=== PATIENT | female | born 1985 | race African-American/Black ===

== ENCOUNTER 2017-09-08 08:33 | Emergency (ER) | payer OTHER ==
[2017-09-08 08:39] VITALS: BMI 37.9
--- NOTE | 2017-09-08 09:20 | PDOC ---
History of Present Illness - General History Source: Patient Exam Limitations: No Limitations <Jg Khan - Last Filed: 09/08/17 10:16> - History of Present Illness Initial Comments: This patient is a 32 year old female who is 30 weeks (3rd ), with PMHx of gestational diabetes, who presents with 1 week of right calf pain. She states that approximately 1 week ago she noticed varicose veins developing on her lower legs. She also developed a pressure-like pain in her right lower leg which has affected her sleep. She denies abdominal pain, vaginal bleeding. ObGyn: Dr. Stevens 09/08/17 09:22 <Nena Harrington - Last Filed: 09/08/17 10:19> - General Chief Complaint: Pain Stated Complaint: RT LEG PAIN,30WKS Time Seen by Provider: 09/08/17 09:05 Past History - Past Medical History Asthma: No Cancer: No Cardiac Disorders: No COPD: No Diabetes: Yes (gestational) HTN: No Seizures: No Thyroid Disease: No - Suicide/Smoking/Psychosocial Hx Smoking Status: No Smoking History: Never smoked Have you smoked in the past 12 months: No Number of Cigarettes Smoked Daily: 0 Hx Alcohol Use: No Drug/Substance Use Hx: No Hx Substance Use Treatment: No <Jg Khan - Last Filed: 09/08/17 10:16> <Nena Harrington - Last Filed: 09/08/17 10:19> - Past Medical History Allergies/Adverse Reactions: Allergies Allergy/AdvReac Type Severity Reaction Status Date / Time No Known Allergies Allergy Verified 09/08/17 08:39 Home Medications: Ambulatory Orders Vitamins (Sjr) - 1 tab PO DAILY 10/16/13 Acetaminophen [Tylenol .Regular Strength -] 650 mg PO Q4H PRN #20 tablet Ibuprofen [Motrin -] 600 mg PO Q4H PRN #20 tablet 10/19/13 Review of Systems - Review of Systems Comments:: GENERAL/CONSTITUTIONAL: No fever or chills. No weakness. HEAD, EYES, EARS, NOSE AND THROAT: No change in vision. No ear pain or discharge. No sore throat. CARDIOVASCULAR: No chest pain or shortness of breath. RESPIRATORY: No cough, wheezing, or hemoptysis. GASTROINTESTINAL: No nausea, vomiting, diarrhea or constipation. GENITOURINARY: No dysuria, frequency, or change in urination. MUSCULOSKELETAL: +right calf pain. No joint pain. No neck or back pain. SKIN: No rash NEUROLOGIC: No headache, vertigo, loss of consciousness, or change in strength/ sensation. ENDOCRINE: No increased thirst. No abnormal weight change. HEMATOLOGIC/LYMPHATIC: +b/l varicose veins in LE. No anemia, easy bleeding, or history of blood clots. ALLERGIC/IMMUNOLOGIC: No hives or skin allergy. 09/08/17 09:23 <Nena Harrington - Last Filed: 09/08/17 10:19> *Physical Exam - Vital Signs Last Vital Signs Temp Pulse Resp BP Pulse Ox 97 F L 82 18 142/59 99 09/08/17 08:35 09/08/17 08:35 09/08/17 08:35 09/08/17 08:35 09/08/17 08:35 <Jg Khan - Last Filed: 09/08/17 10:16> - Vital Signs Last Vital Signs Temp Pulse Resp BP Pulse Ox 97 F L 82 18 142/59 99 09/08/17 08:35 09/08/17 08:35 09/08/17 08:35 09/08/17 08:35 09/08/17 08:35 - Physical Exam Comments: GENERAL: Awake, alert, and fully oriented, in no acute distress HEAD: No signs of trauma EYES: PERRLA, EOMI, sclera anicteric, conjunctiva clear ENT: Auricles normal inspection, hearing grossly normal, nares patent. Moist mucosa LUNGS: Breath sounds equal, clear to auscultation bilaterally. No wheezes, and no crackles HEART: Regular rate and rhythm, normal S1 and S2, no murmurs, rubs or gallops ABDOMEN: Soft, gravid, nontender. No guarding, no rebound. No masses EXTREMITIES: + 2+ DP pulses. B/l varicose veins. No right leg tenderness. Normal range of motion, no edema. No clubbing or cyanosis. No cords, erythema, or tenderness NEUROLOGICAL: Cranial nerves II through XII grossly intact. Normal speech, normal gait SKIN: Warm, Dry, normal turgor, no rashes or lesions noted. 09/08/17 09:24 <Nena Harrington - Last Filed: 09/08/17 10:19> ED Treatment Course - RADIOLOGY Radiology Studies Ordered: Category Date Time Status DUPLEX VASCUL US-1 LEG [US] Stat Ultrasound 09/08/17 09:11 Ordered <Jg Khan - Last Filed: 09/08/17 10:16> - RADIOLOGY Radiograph Interpretation: 09/08/17 10:19 US/Duplex vascular Impression: No evidence of acute DVT. Reported by: Juan C Mejia MD 09/08/17 0954 <Nena Harrington - Last Filed: 09/08/17 10:19> Medical Decision Making - Medical Decision Making 09/08/17 09:13 A portion of this note was documented by scribe services under my direction. I have reviewed the details of the note, within reason, and agree with the documentation with the following case summary and management plan written by me. Patient treated in the ED. Nursing notes are reviewed and incorporated into the medical decision-making. Vital signs reviewed. Peripheral IV access obtained by the nurse, laboratory studies are drawn and sent, reviewed and interpreted by myself. Vital Signs Temp Pulse Resp BP Pulse Ox 97 F L 82 18 142/59 99 09/08/17 08:35 09/08/17 08:35 09/08/17 08:35 09/08/17 08:35 09/08/17 08:35 32-year-old female patient with no past medical history, approximately 30 weeks , 002 presents with right leg calf pain and swelling for one week. Patient started noticed some increasing varicose veins and some intermittent right calf pain. Denies prior history of DVTs or pulmonary embolus. Denies chest pain or shortness of breath. Patient does report that she' s been more ambulatory than usual. Denies abdominal pain or vaginal bleeding. We'll obtain a duplex the right lower extremity to rule out DVT. If negative, I suspect the patient may be having increasing varicose veins. Ultimately, the patient should go to labor and delivery for further evaluation. 09/08/17 10:17 Duplex reviewed. No DVTs. Pt is cleared for discharge up to L&D for heart monitoring. I had discussed the case for June in L&D who is aware patient will be sent to the 3rd floor. Pt informed of the results and agrees with plan. <Jg Khan - Last Filed: 09/08/17 10:16> *DC/Admit/Observation/Transfer - Discharge Dispostion Decision to Admit order: No <Jg Khan - Last Filed: 09/08/17 10:16> - Attestations Scribe Attestion: 09/08/17 09:31 Documentation prepared by Nena Harrington, acting as medical pathology teacher for Jg Khan MD. <Nena Harrington - Last Filed: 09/08/17 10:19> Diagnosis at time of Disposition: Right calf pain - Discharge Dispostion Disposition: HOME - Referrals Referrals: Román Penaloza MD [Primary Care Provider] - - Patient Instructions Printed Discharge Instructions: DI for Leg Pain Additional Instructions: Your ultrasound is negative for DVT. Please go directly to 3rd floor to labor and delivery in [facility]. - Post Discharge Activity
[2017-09-08 12:09] VITALS: BP 110/59; PULSE 66; TEMP 98.3
== END 2017-09-08 12:53 | disposition home or self-care (01) ==
LOC: JER 08:33
DX: O26.893 Other specified pregnancy related conditions, third trimester (principal); M79.661 Pain in right lower leg; Z3A.30 30 weeks gestation of pregnancy; Z86.32 Personal history of gestational diabetes
CPT/HCPCS: 93971-TC; 99281-25

== ENCOUNTER 2017-11-19 12:45 | Inpatient (IN) | payer OTHER ==
[2017-11-19] MEDS ORDERED: ELECTROLYTE-148 SOLN 500 ML IV ONE (13:00)
[2017-11-19] MEDS ORDERED: ELECTROLYTE-148 SOLN 1,000 ML IV SCH (13:30)
[2017-11-19 13:43] VITALS: BMI 40.2
[2017-11-19] MEDS ORDERED: OXYTOCIN 20 UNITS in 0.9% NS 20 UNIT/1,000 ML INFUS.BAG IV ONE (13:56)
[2017-11-19] MEDS ORDERED: CITRIC ACID/SODIUM CITRATE 30 ML UNIT-DOSE CUP PO ONE (14:15)
[2017-11-19] MEDS ORDERED: morphine SULFATE/Preservative Free 0.5 MG/ML (1cc Syringe) ONE (16:01)
[2017-11-19] MEDS ORDERED: ceFAZolin SODIUM 1 GM VIAL ONE (16:12)
[2017-11-19] MEDS ORDERED: ePHEDrine SULFATE 50 MG/1 ML AMPULE ONE (16:16)
[2017-11-19] MEDS ORDERED: PHENYLEPHRINE HCL 10 MG/1 ML SINGLE DOSE VIAL ONE (16:16)
[2017-11-19] MEDS ORDERED: OXYTOCIN 10 UNITS/ML VIAL ONE ×2 (16:27→16:40)
--- NOTE | 2017-11-19 16:40 | PN ---
Progress Note (short form) - Note Progress Note: Attended Rpt C/S for this 32yrs old Maternal PNL- reported nl, GBS- pos.- no ROM/ Not in labor Mom newly diagnosed GDM- no meds/ or diet controlled Infant delivered- clear fluid cried soon after suctioned/ dried cord 3V 9/9 's PE nl for age Not in distress RNBC Watch for Resp distress F/U accuchk Encourage Bf/ bonding Term female
--- NOTE | 2017-11-19 17:27 | HP ---
Past Medical History - Primary Care Physician PCP:: Rodney Crook - Admission Chief Complaint: 39 weeks, previous c/s , request of c/s and BTL History of Present Illness: 32 yo f g 3 p2002 edc 11/24/17 with 2 previous c/s , request of repeat c/s and btl. aware btl is parmenant and has small failure risk and risk of ectopic, cx clp vx -3, mi, fhr cat 1,\hx of gestational DM, diet controlled History Source: Patient Limitations to Obtaining History: No Limitations - Past Medical History ...: 4 ...Para: 2 ...Term: 2 ...Spon : 1 ...LMP: 02/17/17 ... Weeks Gestation by Dates: 39.1 ...EDC by Dates: 11/25/17 ...EDC by Sono: 11/24/17 - Past Surgical History Past Surgical History: Yes: None (previous c/s) Hx Myomectomy: No Hx Transabdominal Cerclage: No - Smoking History Smoking history: Never smoked Have you smoked in the past 12 months: No Aproximately how many cigarettes per day: 0 - Alcohol/Substance Use Hx Alcohol Use: No - Social History Usual Living Arrangement: Yes: With Spouse History of Recent Travel: No Home Medications - Allergies Allergies/Adverse Reactions: Allergies Allergy/AdvReac Type Severity Reaction Status Date / Time No Known Allergies Allergy Verified 11/19/17 13:31 - Home Medications Home Medications: Ambulatory Orders Vitamins (Sjr) - 1 tab PO DAILY 10/16/13 Ferrous Sulfate [Feosol] 325 mg PO DAILY 09/08/17 Review of Systems - Review of Systems Constitutional: reports: No Symptoms Eyes: reports: No Symptoms HENT: reports: No Symptoms Neck: reports: No Symptoms Cardiovascular: reports: No Symptoms Respiratory: reports: No Symptoms Gastrointestinal: reports: No Symptoms Genitourinary: reports: No Symptoms Breasts: reports: No Symptoms Reported Musculoskeletal: reports: No Symptoms Integumentary: reports: No Symptoms Neurological: reports: No Symptoms Endocrine: reports: No Symptoms Hematology/Lymphatic: reports: No Symptoms Psychiatric: reports: No Symptoms Physical Exam - Maternity Vital Signs: Vital Signs Temperature 98.0 F 11/19/17 13:34 Pulse Rate 68 11/19/17 13:34 Respiratory Rate 20 08/27/18 13:34 Blood Pressure 113/66 11/19/17 13:34 O2 Sat by Pulse Oximetry (%) Constitutional: Yes: Well Nourished, No Distress, Calm Eyes: Yes: WNL, Conjunctiva Clear, EOM Intact HENT: Yes: WNL, Atraumatic, Normocephalic Neck: Yes: WNL, Supple, Trachea Midline Cardiovascular: Yes: WNL, Regular Rate and Rhythm Breast(s): Yes: WNL - Abdominal Exam/OB Fundal Height: 40 Number of Fetuses: Single Presentation: Vertex Contractions: Yes Regularity: Irregular Intensity: Unaware Monitor Mode: External Heart Rate Location: LLQ - Vaginal Exam/OB Dilatation (cm): 0 Effacement (%): 0 Amniotic Membrane Status: Intact Presentation: Vertex/Position Station: -3 - Physical Exam Musculoskeletal: Yes: WNL Edema: Yes Edema: LLE: Trace, RLE: Trace Deep Tendon Reflex Grade: Normal +2 Psychiatric: Yes: WNL Problem List - Problems (1) with 39 completed weeks gestation Code(s): Z3A.39 - 39 WEEKS GESTATION OF (2) Previous section Code(s): Z98.891 - HISTORY OF UTERINE SCAR FROM PREVIOUS SURGERY (3) Gestational diabetes mellitus (GDM) affecting eighth Code(s): O24.419 - GESTATIONAL DIABETES MELLITUS IN , UNSP CONTROL; O09.40 - SUPERVISION OF W GRAND MULTIPARITY, UNSP TRIMESTER (4) Gestational diabetes mellitus Code(s): O24.419 - GESTATIONAL DIABETES MELLITUS IN , UNSP CONTROL Qualifiers: Gestational diabetes mellitus control: diet-controlled Trimester: third trimester Qualified Code(s): O24.410 - Gestational diabetes mellitus in , diet controlled Assessment/Plan admit for c/s and BTL. rba discussed
[2017-11-19] MEDS ORDERED: WITCH HAZEL 50% (TUCKS) 40 PAD/JAR PAD TP PRN (17:33)
[2017-11-19] MEDS ORDERED: BENZOCAINE 20% 57 GM BOTTLE TP PRN (17:33)
[2017-11-19] MEDS ORDERED: BENZOCAINE 28 GM HEMORRHOIDAL OINTMENT PR PRN (17:33)
[2017-11-19] MEDS ORDERED: oxyCODONE HCL 5 MG TABLET PO PRN (17:33)
[2017-11-19] MEDS ORDERED: METHYLERGONOVINE MALEATE 0.2 MG/1 ML AMP IM PRN (17:33)
[2017-11-19] MEDS ORDERED: OXYTOCIN 20 UNITS in 0.9% NS 20 UNIT/1,000 ML INFUS.BAG IV SCH (17:45)
[2017-11-19] MEDS ORDERED: CEFAZOLIN 1 GM in DEXTROSE 5%-WATER - 50 ML IVPB SCH (18:00)
[2017-11-19] MEDS: OXYTOCIN 20 UNITS in 0.9% NS 20 UNIT/1,000 ML INFUS.BAG IV SCH (18:29)
[2017-11-19] MEDS ORDERED: IBUPROFEN 800 MG/8 ML IJ IVPB ONE (19:12)
[2017-11-19] MEDS: IBUPROFEN 800 MG/8 ML IJ IVPB PRN (19:18)
[2017-11-19] MEDS ORDERED: TUBERCULIN PPD 5 TU/0.1ML SYRINGE (IN PATIENT USE ONLY) ID ONE ×2 (19:45)
[2017-11-19] MEDS: diphenhydrAMINE HCL 25 MG CAPSULE (FP) PO PRN (22:31)
[2017-11-20] MEDS ORDERED: ceFAZolin SODIUM 1 GM VIAL ONE ×3 (00:53→16:18)
[2017-11-20] MEDS ORDERED: DEXTROSE 5%-WATER - 50 ML IVPB ONE ×3 (00:53→16:18)
[2017-11-20] MEDS: CEFAZOLIN 1 GM in DEXTROSE 5%-WATER - 50 ML IVPB SCH ×3 (01:15→16:22)
[2017-11-20] MEDS: diphenhydrAMINE HCL 25 MG CAPSULE (FP) PO PRN (08:09)
--- NOTE | 2017-11-20 08:22 | PN ---
Progress Note (short form) - Note Progress Note: Post op day#1.S/P C Section under spinal anesthesia with duramorph uneventful.Patient stable and has little pain for which she is on medication.No any anesthesia related problem.Patient DC from the anesthesia care.
[2017-11-20 09:05] LABS: BASO % 0.3 % (0-2.0); EOS % 0.9 % (0-4.5); HEMATOCRIT 36.2 % (32.4-45.2); HEMOGLOBIN 12.1 GM/dL (10.7-15.3); LYMPH % 15.3 % (8-40); MCH 28.4 pg (25.7-33.7); MCHC 33.3 g/dl (32.0-36.0); MEAN PLT VOLUME 11.5 fl (7.5-11.1); MONO % 9.6 % (3.8-10.2); NEUT % 73.9 % (42.8-82.8); PLATELET COUNT 104 K/MM3 (134-434); RBC 4.26 M/mm3 (3.60-5.2); RDW 16.2 % (11.6-15.6); WHITE BLOOD COUNT 6.6 K/mm3 (4.0-10.0)
[2017-11-20] MEDS: ENOXAPARIN NA (PORCINE) 40 MG/0.4 ML DISP.SYRIN SQ SCH (09:05)
[2017-11-20] MEDS: IBUPROFEN 800 MG/8 ML IJ IVPB PRN (09:05)
--- NOTE | 2017-11-20 11:32 | OP ---
DATE OF OPERATION: 11/19/2017 PREOPERATIVE DIAGNOSIS: , 39 weeks, previous section, request of repeat section and tubal ligation. POSTOPERATIVE DIAGNOSIS: , 39 weeks, previous section, request of repeat section and tubal ligation. PROCEDURE: Repeat low segment transverse section and bilateral tubal ligation. SURGEON: Rodney Crook MD LOCKSTITCH BINDER: Reji Barr MD ANESTHESIA: Spinal. ESTIMATED BLOOD LOSS: 500 mL. OPERATION: The patient was taken to the operating room, had adequate spinal anesthesia. Abdomen and perineum were prepped and draped. Pfannenstiel abdominal skin incision was made. Abdominal wall was cut layer by layer until peritoneum was exposed and incised. Upon entering the abdominal cavity, lower uterine segment was identified, and uterovesical fold of peritoneum was established, and bladder was pushed down. Then, with the lower blade of the Browning retractor in the pelvis, a low transverse uterine incision was made. Incision extended laterally. Amniotic sac was entered. Clear fluid, head delivered. Nasopharynx was suctioned, and live baby was delivered without any difficulty. Placenta was delivered manually. Uterine cavity was cleaned of all remaining tissue. Uterine incision was closed using 2 layers, 1st layer with 0 Biosyn continuous suture, the 2nd layer with 0 Biosyn imbricating the 1st layer. Bladder flap was closed with 0 Biosyn continuous suture. Both tubes and ovaries were checked, were normal. No active bleeding was seen. Then, right tube was grasped with Christy clamp. Right tube was doubly tied with 2-0 plain, portion of tube was removed, and endosalpinx was cauterized. The same procedure repeated for opposite tube. No active bleeding was seen. Then, all the lap pad, sponge count, and instrument count were correct. Peritoneum was closed with 0 Biosyn continuous suture, muscles were brought together with interrupted sutures of 0 Biosyn, fascia was closed with 0 Biosyn continuous suture, subcutaneous fat with interrupted suture of 0 Biosyn, and the skin was closed with 3-0 Vicryl subcuticular continuous suture. Patient tolerated the procedure well, left the OR in good condition. El [id number]
[2017-11-20] MEDS: SIMETHICONE 80 MG TAB.CHEW (FP) PO PRN ×2 (12:55→22:08)
[2017-11-20] MEDS: IBUPROFEN 600 MG TABLET (FP) PO PRN (12:55)
[2017-11-20] MEDS ORDERED: ACETAMINOPHEN 325 MG TABLET (FP) PO PRN (13:37)
--- NOTE | 2017-11-20 13:38 | PN ---
Progress Note (short form) - Note Progress Note: pod 1 s/p repeat c/s , BTL ambulating , no excess vaginal bleeding CBC, BMP 11/20/17 08:30 Last Vital Signs Temp Pulse Resp BP Pulse Ox 98.5 F 60 18 117/62 100 11/20/17 08:34 11/20/17 08:34 11/20/17 11:00 11/20/17 08:34 11/19/17 18:15 abdomen soft, no distension, no cva incision dry, clean no calf tenderness no excess vaginal bleeding plan ambulate, advance diet pain management Problem List - Problems (1) with 39 completed weeks gestation Code(s): Z3A.39 - 39 WEEKS GESTATION OF (2) Previous section Code(s): Z98.891 - HISTORY OF UTERINE SCAR FROM PREVIOUS SURGERY (3) Gestational diabetes mellitus (GDM) affecting eighth Code(s): O24.419 - GESTATIONAL DIABETES MELLITUS IN , UNSP CONTROL; O09.40 - SUPERVISION OF W GRAND MULTIPARITY, UNSP TRIMESTER (4) Gestational diabetes mellitus Code(s): O24.419 - GESTATIONAL DIABETES MELLITUS IN , UNSP CONTROL Qualifiers: Gestational diabetes mellitus control: diet-controlled Trimester: third trimester Qualified Code(s): O24.410 - Gestational diabetes mellitus in , diet controlled
[2017-11-20] MEDS: oxyCODONE HCL 5 MG TABLET PO PRN (14:39)
[2017-11-20] MEDS ORDERED: BISACODYL 10 MG SUPP.RECT PR PRN (17:33)
[2017-11-20] MEDS: ACETAMINOPHEN 325 MG TABLET (FP) PO PRN (22:08)
[2017-11-21] MEDS: CEFAZOLIN 1 GM in DEXTROSE 5%-WATER - 50 ML IVPB SCH (01:01)
[2017-11-21] MEDS: SIMETHICONE 80 MG TAB.CHEW (FP) PO PRN ×2 (04:35→23:31)
[2017-11-21] MEDS: IBUPROFEN 600 MG TABLET (FP) PO PRN ×5 (04:36→23:31)
[2017-11-21] MEDS: oxyCODONE HCL 5 MG TABLET PO PRN ×5 (04:36→23:31)
[2017-11-21] MEDS: ENOXAPARIN NA (PORCINE) 40 MG/0.4 ML DISP.SYRIN SQ SCH (10:00)
--- NOTE | 2017-11-21 10:02 | DS ---
Physical Exam-COMPLAINT INVESTIGATOR Vital Signs: Vital Signs Temperature 98.1 F 11/21/17 09:21 Pulse Rate 61 11/21/17 09:21 Respiratory Rate 18 11/21/17 09:21 Blood Pressure 119/67 11/21/17 09:21 O2 Sat by Pulse Oximetry (%) 100 11/19/17 18:15 Constitutional: Yes: Well Nourished, No Distress, Calm Eyes: Yes: WNL, Conjunctiva Clear, EOM Intact HENT: Yes: WNL, Atraumatic, Normocephalic Neck: Yes: WNL, Supple, Trachea Midline Cardiovascular: Yes: WNL, Regular Rate and Rhythm Respiratory: Yes: WNL, Regular, CTA Bilaterally Gastrointestinal: Yes: WNL ...Rectal Exam: Yes: WNL Renal/: Yes: WNL External Genitalia: Yes: Normal ....Post : Yes: Uterus firm, Uterus non-tender, Slight lochia rubra Breast(s): Yes: WNL Musculoskeletal: Yes: WNL Extremities: Yes: WNL Edema: No Integumentary: Yes: WNL Wound/Incision: Yes: Clean/Dry, Well Approximated, Sutures Intact Neurological: Yes: WNL, Alert, Oriented ...Motor Strength: WNL Psychiatric: Yes: WNL, Alert, Oriented Labs: CBC, BMP 11/20/17 08:30 Delivery - Delivery Section: Repeat, Low Flap Transverse (no complication) Type of Anesthesia: Spinal Episiotomy/Laceration: None EBL (cc): 500 Delivery, Single - Stages of Labor Date of Delivery: 11/19/17 Time of Delivery: 16:19 Time Placenta Delivered: 16:20 Placenta: Yes: Expressed - Condition of Infant Office Coordinator Receptionist/Assistant Manager Trainee Present: Yes Name: Nicho Zepeda Gender: Female Weight: 7 lb 5 oz Position: Right, OT Total Hours ROM (Hrs/Mins): 0/01 - 1 Minute Total Score: 9 5 Minutes Total Score: 9 - [facility] Feeding Plan Initial Plan: Elected not to breastfeed exclusively throughout hospitalization Discharge Summary Reason For Visit: Current Active Problems Gestational diabetes mellitus (Acute) Gestational diabetes mellitus (GDM) affecting eighth (Acute) with 39 completed weeks gestation (Acute) Previous section (Acute) Procedures: Principal: repeat c/s. BTL Hospital Course: no complication - Instructions Diet, Activity, Other Instructions: regular diet, follow up office 1 week - Home Medications Comprehensive Discharge Medication List: Ambulatory Orders Vitamins (Sjr) - 1 tab PO DAILY 10/16/13 Ferrous Sulfate [Feosol] 325 mg PO DAILY 09/08/17
[2017-11-21] MEDS: OXYTOCIN 20 UNITS in 0.9% NS 20 UNIT/1,000 ML INFUS.BAG IV SCH ×2 (21:58→21:59)
[2017-11-21] MEDS: DEXTROSE 5%-LACTATED RINGERS 1,000 ML IV SCH (21:58)
[2017-11-21] MEDS ORDERED: SENNOSIDES/DOCUSATE COMBO (SENNA PLUS) TABLET (UD) PO PRN (22:00)
[2017-11-21] MEDS: ACETAMINOPHEN 325 MG TABLET (FP) PO PRN (23:31)
[2017-11-22] MEDS: DEXTROSE 5%-LACTATED RINGERS 1,000 ML IV SCH (03:05)
[2017-11-22] MEDS: SIMETHICONE 80 MG TAB.CHEW (FP) PO PRN (07:27)
[2017-11-22] MEDS: IBUPROFEN 600 MG TABLET (FP) PO PRN ×2 (07:28→12:58)
[2017-11-22] MEDS: oxyCODONE HCL 5 MG TABLET PO PRN ×2 (07:28→12:57)
--- NOTE | 2017-11-22 07:36 | PN ---
Post Progress Note - Subjective Subjective: Patient without acute complaints. Reports tolerating oral intake without nausea or vomiting. Ambulating without dizziness. Denies fevers or chills. Pain well controlled with oral pain medication. without difficulty. Passing flatus. Post Day: 3 Type of Delivery: Repeat C/S Vital Signs: Vital Signs Temperature 97.5 F L 11/21/17 21:34 Pulse Rate 60 11/21/17 21:34 Respiratory Rate 18 11/21/17 21:34 Blood Pressure 112/70 11/21/17 21:34 O2 Sat by Pulse Oximetry (%) 100 11/19/17 18:15 Breast Exam: Yes: Soft Uterus: Yes: Fundus Firm, Fundus below umbilicus Incision: Yes: Sutures intact. No: Redness, Oozing Abdomen/GI: Yes: Abdomen soft, Tender (mild incisional), Passing flatus, Tolerating PO. No: Abdominal Distention Lochia: Yes: Serosa Lochia, amount: Small Extremities: Yes: Calves non-tender. No: Edema Activity: Ambulating - Labs Labs: CBC WBC 6.6 K/mm3 (4.0-10.0) 11/20/17 08:30 RBC 4.26 M/mm3 (3.60-5.2) 11/20/17 08:30 Hgb 12.1 GM/dL (10.7-15.3) 11/20/17 08:30 Hct 36.2 % (32.4-45.2) 11/20/17 08:30 MCV 85.0 fl (80-96) 11/20/17 08:30 MCH 28.4 pg (25.7-33.7) 11/20/17 08:30 MCHC 33.3 g/dl (32.0-36.0) 11/20/17 08:30 RDW 16.2 % (11.6-15.6) H 11/20/17 08:30 Plt Count 104 K/MM3 (134-434) L 11/20/17 08:30 MPV 11.5 fl (7.5-11.1) H 11/20/17 08:30 Absolute Neuts (auto) 4.9 K/mm3 (1.5-8.0) 11/20/17 08:30 Neutrophils % 73.9 % (42.8-82.8) D 11/20/17 08:30 Lymphocytes % 15.3 % (8-40) D 11/20/17 08:30 Monocytes % 9.6 % (3.8-10.2) 11/20/17 08:30 Eosinophils % 0.9 % (0-4.5) 11/20/17 08:30 Basophils % 0.3 % (0-2.0) 11/20/17 08:30 Nucleated RBC % 0 % (0-0) 11/20/17 08:30 Assessment/Plan 32 yo POD # 3 s/p R CD, afebrile, vital signs stable, stable for discharge home today 1. Patient stable for discharge home today. 2. Patient encouraged to contact MD for: - Severe pain not controlled by oral pain medication - Fevers or chills - Nausea or vomiting, intolerance of oral intake - Incision redness, tenderness or discharge 3. Patient to follow up in office in 1-2 weeks for incision check, 4-6 weeks for visit
[2017-11-22 07:52] VITALS: BP 130/78; PULSE 70; TEMP 98
[2017-11-22 08:29] LABS: BASO % 0.2 % (0-2.0); EOS % 1.8 % (0-4.5); HEMATOCRIT 35.5 % (32.4-45.2); HEMOGLOBIN 11.6 GM/dL (10.7-15.3); LYMPH % 35.2 % (8-40); MCH 27.8 pg (25.7-33.7); MCHC 32.7 g/dl (32.0-36.0); MEAN CELL VOLUME 85.1 fl (80-96); MEAN PLT VOLUME 10.6 fl (7.5-11.1); MONO % 8.2 % (3.8-10.2); NEUT % 54.6 % (42.8-82.8); PLATELET COUNT 124 K/MM3 (134-434); RBC 4.17 M/mm3 (3.60-5.2); RDW 16.3 % (11.6-15.6); WHITE BLOOD COUNT 5.9 K/mm3 (4.0-10.0)
[2017-11-22] MEDS: ENOXAPARIN NA (PORCINE) 40 MG/0.4 ML DISP.SYRIN SQ SCH ×2 (08:57→09:02)
--- NOTE | 2017-11-27 16:21 | PATH ---
Surgical Pathology Report Patient Name: MONAE PALACIOS [facility]. Rec. #: [id number] /Age/Gender: 1985 (Age: 32) / F Account: [id number] Location: [facility] OBS/FLEXOGRAPHIC PRESS HELPER Taken: 11/19/2017 Received: 11/20/2017 Reported: 11/27/2017 Physicians: Rodney Crook M.D. Specimen(s) Received A: PLACENTA B: LEFT PORTION FALLOPIAN TUBE C: RIGHT PORTION FALLOPIAN TUBE Clinical History , x2 Final Diagnosis A. PLACENTA, SECTION: 439 G THIRD TRIMESTER PLACENTA WITH TRIVASCULAR UMBILICAL CORD AND UNREMARKABLE PLACENTAL MEMBRANES. B. FALLOPIAN TUBE, LEFT, PARTIAL EXCISION: FULL LUMINAL PORTION OF UNREMARKABLE FALLOPIAN TUBE. C. FALLOPIAN TUBE, RIGHT, PARTIAL EXCISION: FULL LUMINAL PORTION OF UNREMARKABLE FALLOPIAN TUBE. Electronically Signed Brittney Smith M.D. Gross Description A. The specimen is received fresh labeled placenta and is a 439 gram, 15.5 x 15.0 x 2.8 cm. placenta with attached membranes and umbilical cord. The attached membranes are garcia, thick, cloudy and insert marginally. The umbilical cord measures 25 cm. in length and averages 1.2 cm. in diameter. The cord inserts eccentrically, 3.5 cm. to the nearest margin. No true knots or strictures are identified. Cut surface of the umbilical cord reveals 3 vessels. The surface is johns-blue with minimal fibrin deposition and appropriate caliber vessels. The maternal surface is red-brown with focal defects. Sectioning reveals red-brown, spongy parenchyma. No lesions are identified. Tile And Marble Setter sections are submitted in three cassettes as follows: 1- membrane rolls and umbilical cord; 2-3- full thickness sections of placenta. B. Received in formalin labeled "portion of left tube," is a 0.7 cm in length portion of fallopian tube. No fimbria are present. The outer surface is garcia-butt and smooth. Sectioning reveals an unremarkable lumen. Tile And Marble Setter sections are submitted in one cassette. C. Received in formalin labeled "portion of right tube," is a 1.2 cm in length portion of fallopian tube. No fimbria are present. The outer surface is garcia-butt and smooth. Sectioning reveals an unremarkable lumen. Tile And Marble Setter sections are submitted in one cassette. 11/23/2017 saudi11/23/2017
== END 2017-11-22 13:45 | disposition home or self-care (01) | DRG 540 ==
LOC: JLDR 12:45 → J3W 19:40
PROVIDERS: ADMIT Obstetrics & Gynecology; ATTEND Obstetrics & Gynecology
PROC: 10D00Z1 Extraction of Products of Conception, Low, Open Approach (ICD-10-PCS; principal; 2017-11-20)
PROC: 0U570ZZ Destruction of Bilateral Fallopian Tubes, Open Approach (ICD-10-PCS; 2017-11-20)
DX: O34.211 Maternal care for low transverse scar from previous cesarean delivery (principal); O24.410 Gestational diabetes mellitus in pregnancy, diet controlled; Z3A.39 39 weeks gestation of pregnancy; Z37.0 Single live birth; Z30.2 Encounter for sterilization
CPT/HCPCS: 36415; 85025; 88302-TC; 88307-TC

== ENCOUNTER 2018-03-18 19:27 | Emergency (ER) | payer OTHER ==
[2018-03-18 19:44] VITALS: BP 122/68; PULSE 69; TEMP 98.4; BMI 33.8
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
[2018-03-18] MEDS ORDERED: METHOCARBAMOL 500 MG TABLET PO ONE (20:46)
[2018-03-18] MEDS ORDERED: IBUPROFEN 600 MG TABLET (FP) PO ONE ×2 (20:46→21:12)
[2018-03-18] MEDS ORDERED: LIDOCAINE 5% TOPICAL PATCH TP ONE (20:47)
[2018-03-18] MEDS ORDERED: METHOCARBAMOL 500 MG TABLET ONE (21:11)
[2018-03-18] MEDS ORDERED: LIDOCAINE 5% TOPICAL PATCH ONE (21:12)
[2018-03-18] MEDS ORDERED: LIDOCAINE PATCH REMOVAL MC SCH (22:00)
== END 2018-03-19 00:08 | disposition home or self-care (01) ==
LOC: JER 19:27
DX: S09.8XXA Other specified injuries of head, initial encounter (principal); M25.562 Pain in left knee; M25.552 Pain in left hip; Y04.2XXA Assault by strike against or bumped into by another person, initial encounter; Y93.89 Activity, other specified; Y92.122 Bedroom in nursing home as the place of occurrence of the external cause; Y99.8 Other external cause status
CPT/HCPCS: 70450-TC; 72070-TC-FY; 72131-TC; 73523-TC-FY; 73562-TC-LT-FY; 99282-25

== ENCOUNTER 2019-10-19 10:59 | Emergency (ER) | payer OTHER ==
[2019-10-19 11:17] VITALS: BP 108/55; PULSE 72; TEMP 98.4; BMI 38.4
[2019-10-19] MEDS ORDERED: IBUPROFEN 600 MG TABLET (FP) PO ONE ×2 (11:37→11:45)
--- NOTE | 2019-10-19 12:22 | PDOC ---
History of Present Illness - General Chief Complaint: Pain Stated Complaint: KNEE PAIN Time Seen by Provider: 10/19/19 11:10 History Source: Patient Exam Limitations: No Limitations Past History - Travel History Traveled outside of the country in the last 30 days: No Close contact w/someone who was outside of country & ill: No - Medical History Allergies/Adverse Reactions: Allergies Allergy/AdvReac Type Severity Reaction Status Date / Time No Known Allergies Allergy Verified 10/19/19 11:05 Home Medications: Ambulatory Orders Vitamins (Sjr) - 1 tab PO DAILY 10/16/13 Ferrous Sulfate [Feosol] 325 mg PO DAILY 09/08/17 Ibuprofen [Motrin -] 600 mg PO QID #28 tablet 11/22/17 Oxycodone HCl/Acetaminophen [Percocet 5-325 mg Tablet] 1 tab PO Q6H #10 tablet MDD 4 11/22/17 Methocarbamol [Robaxin -] 500 mg PO BID PRN #14 tablet 03/18/18 Crutch 1 each MC ASDIR #1 each 10/19/19 Ibuprofen 600 mg PO Q6H #30 tablet 10/19/19 Asthma: No Cancer: No Cardiac Disorders: No COPD: No Diabetes: No HTN: No Seizures: No Thyroid Disease: No - Psycho-Social/Smoking History Smoking Status: No Smoking History: Never smoked Have you smoked in the past 12 months: No Number of Cigarettes Smoked Daily: 0 Review of Systems - Review of Systems Able to Perform ROS?: Yes Comments:: 10/19/19 15:35 CONSTITUTIONAL: Absent: fever, chills, diaphoresis, generalized weakness, malaise, loss of appetite HEENT: Absent: rhinorrhea, nasal congestion, throat pain, throat swelling, difficulty swallowing, mouth swelling, ear pain, eye pain, visual Changes CARDIOVASCULAR: Absent: chest pain, loss of consciousness, palpitations, irregular heart rate, peripheral edema RESPIRATORY: Absent: cough, shortness of breath, dyspnea with exertion, orthopnea, wheezing, stridor, hemoptysis GASTROINTESTINAL: Absent: abdominal pain, abdominal distension, nausea, vomiting, diarrhea, constipation, melena, hematochezia GENITOURINARY: Absent: dysuria, frequency, urgency, hesitancy, hematuria, flank pain, genital pain MUSCULOSKELETAL: Presen: R knee pain Absent: myalgia, arthralgia, joint swelling SKIN: Absent: rash, itching, pallor NEUROLOGIC: Absent: headache, focal weakness or paresthesias, dizziness, unsteady gait, seizure, mental status changes, bladder or bowel incontinence PSYCHIATRIC: Absent: anxiety, depression, suicidal or homicidal ideation, hallucinations. Is the patient limited Palauan proficient: No *Physical Exam - Vital Signs Last Vital Signs Temp Pulse Resp BP Pulse Ox 98.4 F 72 18 108/55 L 99 10/19/19 11:04 10/19/19 11:04 10/19/19 11:04 10/19/19 11:04 10/19/19 11:04 - Physical Exam 10/19/19 15:38 GENERAL: Well developed, well nourished. Awake and alert. No acute distress. MUSCULOSKELETAL Tenderness palpation of the anterior knee, medially. Mild crepitus felt. Edema noted to the lateral aspect of the right knee. Negative anterior, posterior draw testing negative Konstantin sign. Decreased range of motion of the right knee due to pain. Normal range of motion at all other joints. No bony deformities or tenderness. No CVA tenderness. EXTREMITIES: No cyanosis. No clubbing. No edema. No calf tenderness. SKIN: Warm and dry. Normal capillary refill. No rashes. No jaundice. NEUROLOGICAL: Alert, awake, appropriate. Cranial nerves 2-12 intact. No deficits to light touch and temperature in face, upper extremities and lower extremities. No motor deficits in the in face, upper extremities and lower extremities. Normoreflexic in the upper and lower extremities. Normal speech. Toes are down-going bilaterally. Gait is normal without ataxia. PSYCHIATRIC: Cooperative. Good eye contact. Appropriate mood and affect. ED Treatment Course - RADIOLOGY Radiology Studies Ordered: Category Date Time Status KNEE 3 POS-RIGHT [RAD] Stat Radiology 10/19/19 11:37 Taken - Medications Given in the ED: ED Medications Discontinued Medications Generic Name Dose Route Start Last Admin Trade Name Freq PRN Reason Stop Dose Admin Ibuprofen 600 mg 10/19/19 11:37 10/19/19 11:46 Motrin - PO 10/19/19 11:38 600 mg ONCE ONE Administration Medical Decision Making - Medical Decision Making 10/19/19 15:39 Patient is a 34-year-old female no past medical history who presents to the ER today for right knee pain for the past 3 days. 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 She denies any trauma or inciting factors. She notes that her knee is a little swollen. Denies fevers, chills, calf pain, recent travel, history of blood clots, control use, numbness and tingling and weakness the affected extremity. A/P: Knee pain On exam patient has swelling to the anterior lateral aspects of the right knee with mild crepitus felt. Special testing of the knee is negative for any acute findings. Suspect effusion. No calf tenderness. Low suspicion for DVT. Mild effusion noted on x-ray, no fractures or subluxations noted, as read by myself. Patient placed in a knee immobilizer and given crutches. Ortho follow-up given. Discharge home with return precautions. I discussed the physical exam findings, ancillary test results and final diagnoses with the patient. I answered all of the patient's questions. The patient was satisfied with the care received and felt comfortable with the discharge plan and treatment plan. The Patient agrees to follow up with the primary care physician/specialist within 24-72 hours. Return precautions were given. Discharge - Discharge Information Problems reviewed: Yes Clinical Impression/Diagnosis: Knee pain Qualifiers: Chronicity: acute Laterality: right Qualified Code(s): M25.561 - Pain in right knee Condition: Stable Disposition: HOME - Admission No - Additional Discharge Information Prescriptions: Crutch 1 each MC ASDIR #1 each Ibuprofen 600 mg PO Q6H #30 tablet - Follow up/Referral Referrals: Román Penaloza MD [Primary Care Provider] - Vick Hutson DO [Staff Physician] - - Patient Discharge Instructions Patient Printed Discharge Instructions: DI for Knee Pain Additional Instructions: You were seen for your knee pain today You most likely have an effusion or fluid behind the knee You may take Motrin 600mg every 6 hours as needed for pain and swelling. You may apply heat to the area. Use the aurora wrap and crutches to help with walking Follow up with orthopedics this week. A referral has been provided to you. Return to the ER for worsening pain, calf pain, or if you have any changes in your symptoms - Post Discharge Activity Work/Back to School Note: Back to Work
== END 2019-10-19 13:31 | disposition home or self-care (01) ==
LOC: JER 10:59
DX: M25.561 Pain in right knee (principal)
CPT/HCPCS: 73562-TC-RT-FY; 99283-25

== ENCOUNTER 2020-08-05 00:41 | Emergency (ER) | payer OTHER ==
[2020-08-05 01:14] VITALS: BP 131/81; PULSE 88; TEMP 99.1; BMI 41.7
[2020-08-05] MEDS ORDERED: ACETAMINOPHEN 325 MG TABLET (FP) PO ONE (01:20)
[2020-08-05] MEDS ORDERED: ACETAMINOPHEN 325 MG TABLET (FP) ONE (01:21)
[2020-08-05 02:32] LABS: BASO % 1.2 % (0-2.0); EOS % 5.9 % (0-4.5); HEMATOCRIT 33.8 % (32.4-45.2); HEMOGLOBIN 11.3 GM/dL (10.7-15.3); MCH 28.5 pg (25.7-33.7); MCHC 33.5 g/dl (32.0-36.0); MEAN CELL VOLUME 85.2 fl (80-96); MEAN PLT VOLUME 9.1 fl (7.5-11.1); MONO % 10.6 % (3.8-10.2); NEUT % 41.3 % (42.8-82.8); PLATELET COUNT 255 K/MM3 (134-434); RBC 3.97 M/mm3 (3.60-5.2); RDW 15.5 % (11.6-15.6); WHITE BLOOD COUNT 6.9 K/mm3 (4.0-10.0)
[2020-08-05 02:56] LABS: ALBUMIN 3.5 g/dl (3.4-5.0); CALCIUM 9.5 mg/dL (8.5-10.1)
[2020-08-05 03:00] LABS: CREATININE 0.8 mg/dL (0.55-1.3)
[2020-08-05 03:01] LABS: BILIRUBIN,TOTAL 0.3 mg/dL (0.2-1); TOT PROT 7.1 g/dl (6.4-8.2)
[2020-08-05] MEDS ORDERED: KETOROLAC TROMETHAMINE 30 MG/1 ML VIAL IVPUSH ONE (03:56)
[2020-08-05] MEDS ORDERED: SODIUM CHLORIDE 1,000 ML IV STA (03:59)
[2020-08-05] MEDS ORDERED: KETOROLAC TROMETHAMINE 15 MG/ML VIAL ONE (04:05)
[2020-08-05 04:32] LABS: EPI CELLS >36 /uL (0-25.1); HYALINE CASTS 5 /uL (0-3.1); PH,URINE 5.5 (5.0-8.0); URINE APPEARANCE CLOUDY; URINE BACTERIA 453 /uL (0-1359); URINE BILIRUBIN NEGATIVE (NEGATIVE); URINE COLOR YELLOW; URINE GLUCOSE (UA) NEGATIVE (NEGATIVE); URINE KETONE NEGATIVE (NEGATIVE); URINE LEUK ESTERASE 3+ (NEGATIVE); URINE NITRITE NEGATIVE (NEGATIVE); URINE PROTEIN NEGATIVE (NEGATIVE); URINE UROBILINOGEN 0.2 mg/dL (0.2-1.0); URINE WBC 828 /uL (0-25.8)
[2020-08-05] MEDS ORDERED: SULFAMETHOXAZOLE/TRIMETHOPRIM 800MG/160MG D.S. TABLET PO ONE (05:18)
[2020-08-05] MEDS ORDERED: SULFAMETHOXAZOLE/TRIMETHOPRIM 800MG/160MG D.S. TABLET ONE (05:27)
[2020-08-05] MEDS ORDERED: NITROFURANTOIN MACROCRYSTAL 50 MG CAPSULE (FP) PO SCH (05:30)
[2020-08-05 11:25] LABS: URINE RBC 24.2 /uL (0-23.9); YEAST NONE SEEN (NEGATIVE)
== END 2020-08-05 05:47 | disposition home or self-care (01) ==
LOC: JER 00:41
PROC: 3E0333Z Introduction of Anti-inflammatory into Peripheral Vein, Percutaneous Approach (ICD-10-PCS; principal; 2020-08-05)
PROC: 3E0337Z Introduction of Electrolytic and Water Balance Substance into Peripheral Vein, Percutaneous Approach (ICD-10-PCS; 2020-08-05)
DX: N30.01 Acute cystitis with hematuria (principal)
CPT/HCPCS: 36415; 74176-TC; 76830-TC; 80053; 81003; 83690; 84703; 85025; 87086; 99285-25

== ENCOUNTER 2023-06-04 20:07 | Emergency (ER) | payer OTHER ==
[2023-06-04 20:25] VITALS: BMI 40.2
[2023-06-04] MEDS ORDERED: METOCLOPRAMIDE HCL INJECTION 10 MG/2 ML VIAL ONE (21:31)
[2023-06-04] MEDS ORDERED: ACETAMINOPHEN INJECTION 100 ML IVPB ONE (21:31)
[2023-06-04] MEDS: METOCLOPRAMIDE HCL INJECTION 10 MG/2 ML VIAL IVPB ONE (21:45)
[2023-06-04] MEDS: SODIUM CHLORIDE 0.9% 500 ML INFUS.BAG IV ONE (21:45)
[2023-06-04] MEDS: ACETAMINOPHEN 1000 MG/100 ML BAG IVPB ONE (21:45)
[2023-06-04 21:50] LABS: BASO % 0.8 % (0-2.0); EOS % 3.8 % (0-4.5); HEMATOCRIT 32.6 % (32.4-45.2); HEMOGLOBIN 10.6 GM/dL (10.7-15.3); LYMPH % 41.2 % (8-40); MCH 26.9 pg (25.7-33.7); MCHC 32.4 g/dl (32.0-36.0); MEAN CELL VOLUME 82.8 fl (80-96); MEAN PLT VOLUME 8.6 fl (7.5-11.1); MONO % 8.6 % (3.8-10.2); NEUT % 45.6 % (42.8-82.8); PLATELET COUNT 256 10^3/uL (134-434); RBC 3.93 M/mm3 (3.60-5.2); RDW 16.5 % (11.6-15.6); WHITE BLOOD COUNT 7.4 K/mm3 (4.0-10.0)
[2023-06-04] MEDS ORDERED: LIDOCAINE 4% PATCH TP ONE (21:57)
[2023-06-04] MEDS: LIDOCAINE 4% PATCH TP ONE (22:04)
[2023-06-04 22:56] LABS: POTASSIUM 3.9 mmol/L (3.5-5.1)
[2023-06-04 22:58] LABS: ALBUMIN 3.2 g/dl (3.4-5.0); BLOOD UREA NITROGEN 9.1 mg/dL (7-18); CALCIUM 8.9 mg/dL (8.5-10.1)
[2023-06-04] MEDS: LIDOCAINE PATCH REMOVAL MC ONE (22:59)
[2023-06-04 23:02] LABS: CREATININE 0.8 mg/dL (0.55-1.3)
[2023-06-04 23:03] LABS: BILIRUBIN,TOTAL 0.2 mg/dL (0.2-1)
[2023-06-05] MEDS ORDERED: DEXAMETHASONE SOD PHOSPHATE 10 MG/1 ML VIAL ONE (00:25)
[2023-06-05] MEDS: DEXAMETHASONE SOD PHOSPHATE 10 MG/1 ML VIAL IVPUSH ONE (00:35)
[2023-06-05 01:16] VITALS: BP 119/76; PULSE 82; RESP 17; TEMP 97.6
== END 2023-06-05 01:21 | disposition home or self-care (01) ==
LOC: JER 20:07
PROC: 3E030NZ Introduction of Analgesics, Hypnotics, Sedatives into Peripheral Vein, Open Approach (ICD-10-PCS; principal; 2023-06-04)
PROC: 3E033GC Introduction of Other Therapeutic Substance into Peripheral Vein, Percutaneous Approach (ICD-10-PCS; 2023-06-04)
PROC: 3E033GC Introduction of Other Therapeutic Substance into Peripheral Vein, Percutaneous Approach (ICD-10-PCS; 2023-06-05)
PROC: 3E033GC Introduction of Other Therapeutic Substance into Peripheral Vein, Percutaneous Approach (ICD-10-PCS; 2023-06-05)
DX: R51.9 Headache, unspecified (principal); R53.1 Weakness; H53.8 Other visual disturbances; Z20.822 Contact with and (suspected) exposure to COVID-19
CPT/HCPCS: 0241U-QW; 36415; 70450-TC; 70496-TC; 70498-TC; 72125-TC; 80053; 84703; 85025; 96374; 96375; 99284-25; J0131; J1100